=== PATIENT | female | born 1995 | race Caucasian/White ===

== ENCOUNTER 2018-10-20 00:46 | Emergency (ER) | payer BC, OTHER ==
[~2018-10-20] VITALS: Ht 162.6 cm; Wt 81.7 kg
[2018-10-20 02:29] VITALS: BP 114/72
== END 2018-10-20 02:32 | disposition home or self-care (01) ==
LOC: ER 00:46
DX: S61.411A Laceration without foreign body of right hand, initial encounter (principal); W26.8XXA Contact with other sharp object(s), not elsewhere classified, initial encounter; Y93.89 Activity, other specified; Y92.89 Other specified places as the place of occurrence of the external cause; Y99.8 Other external cause status